=== PATIENT | female | born 1970 | race African-American/Black ===

== ENCOUNTER 2018-01-13 21:33 | Emergency (ER) | payer OTHER ==
[~2018-01-13] VITALS: Ht 160 cm; Wt 93.0 kg
[2018-01-13] MEDS ORDERED: KEPPRA 500 MG500 M1 PO (21:48)
[2018-01-13] MEDS ORDERED: FLEXERIL PO (23:32)
[2018-01-13 23:55] VITALS: BP 132/76
== END 2018-01-13 23:56 | disposition home or self-care (01) ==
LOC: ER 21:33
DX: R51 Headache (principal); M54.2 Cervicalgia; Z86.73 Personal history of transient ischemic attack (TIA), and cerebral infarction without residual deficits; F17.210 Nicotine dependence, cigarettes, uncomplicated; V49.49XA Driver injured in collision with other motor vehicles in traffic accident, initial encounter; Y93.I9 Activity, other involving external motion; Y92.89 Other specified places as the place of occurrence of the external cause; Y99.8 Other external cause status